=== PATIENT | male | born 1965 | race Hispanic/Latino ===

== ENCOUNTER 2017-11-03 09:51 | Inpatient (IN) | payer SELFPAY ==
[2017-11-03 10:41] LABS: Alanine Aminotransferase 14 units/L (7-56); Albumin 3.8 g/dL (3.9-5); BUN/Creatinine Ratio 22; Blood Urea Nitrogen 11 mg/dL (9-20); Hemolysis Index 63
[2017-11-03 10:42] LABS: Basophils # (Auto) 0.1 K/mm3 (0.0-0.1); Basophils % (Auto) 0.6 % (0.0-1.8); Eosinophils # (Auto) 0.3 K/mm3 (0.0-0.4); Eosinophils % (Auto) 2.5 % (0.0-4.3); Hematocrit 43.2 % (35.5-45.6); Lymphocytes # (Auto) 1.3 K/mm3 (1.2-5.4); Lymphocytes % (Auto) 11.1 % (13.4-35.0); Mean Corpuscular HGB Conc 35 % (32-34); Mean Corpuscular Hemoglobin 34 pg (28-32); Mean Corpuscular Volume 99 fl (84-94); Monocytes # (Auto) 0.8 K/mm3 (0.0-0.8); Platelet Count 215 K/mm3 (140-440); Red Blood Count 4.36 M/mm3 (3.65-5.03); Red Cell Distribution Width 14.7 % (13.2-15.2)
[2017-11-03] MEDS ORDERED: NACL 0.9% 1000 ML 1,000 ML IV ONE ×2 (11:15→12:52)
[2017-11-03] MEDS ORDERED: SUBLIMAZE IV ONE (11:15)
[2017-11-03] MEDS ORDERED: ZOFRAN IV ONE ×2 (11:15→12:52)
--- NOTE | 2017-11-03 11:16 | Emergency Department Report ---
Blank Doc - Documentation Documentation: Patient is 52 years old male history of pancreatitis. Patient presented to the ER complaining of epigastric pain started last night after drinking alcohol. Patient is rating his pain as 10 out of 10 associated with his nausea and vomiting. On a previous exam patient had a epigastric tenderness. IV fluids, fentanyl and Zofran ordered. Patient needed to be seen in the main ED.
[2017-11-03] MEDS ORDERED: SUBLIMAZE IV NR (11:30)
--- NOTE | 2017-11-03 12:47 | Emergency Department Report ---
ED General Adult HPI - General Chief complaint: Abdominal Pain Stated complaint: LOWER ABDOMINAL PAIN Time Seen by Provider: 11/03/17 11:12 Source: patient Mode of arrival: Ambulatory Limitations: No Limitations - History of Present Illness Initial comments: 52-year-old male believes that he has recurrent pancreatitis. He complains of epigastric pain which does not radiate. It started on Thursday and has been intermittent since. It was preceded by alcohol consumption. He denies any back pain. He states he has not had any recent vomiting but states he is nauseated. He denies any known history of cholelithiasis. He has had no fever or chills. No signs of GI bleeding. This had a previous admission here with pancreatitis. It appeared to be uncomplicated. He denies any shortness of breath or chest pain. -: Gradual, days(s) Location: abdomen Radiation: non-radiation Quality: aching Consistency: constant Improves with: none Worsens with: none Associated Symptoms: denies other symptoms, nausea/vomiting - Related Data Home Medications Medication Instructions Recorded Confirmed Last Taken Atenolol [Tenormin] 50 mg PO DAILY 04/22/16 04/22/16 Unknown Previous Rx's Medication Instructions Recorded Last Taken Type Famotidine [Pepcid] 20 mg PO BID #30 tablet 04/25/16 Unknown Rx Folic Acid [Folvite] 1 mg PO QDAY #60 tablet 04/25/16 Unknown Rx LORazepam [Ativan] 2 mg PO Q4-6H PRN #60 tablet 04/25/16 Unknown Rx Nicotine [Habitrol] 21 mg TD QDAY #20 patch 04/25/16 Unknown Rx amLODIPine [Norvasc] 10 mg PO QDAY #60 tablet 04/25/16 Unknown Rx chlordiazePOXIDE [Librium] 25 mg PO Q8H PRN #30 capsule 04/25/16 Unknown Rx Allergies Allergy/AdvReac Type Severity Reaction Status Date / Time No Known Allergies Allergy Verified 11/03/17 09:57 ED Review of Systems ROS: Stated complaint: LOWER ABDOMINAL PAIN Other details as noted in HPI Constitutional: denies: chills, fever Eyes: denies: eye pain, eye discharge, vision change ENT: denies: ear pain, throat pain Respiratory: denies: cough, shortness of breath, wheezing Cardiovascular: denies: chest pain, palpitations Endocrine: no symptoms reported Gastrointestinal: as per HPI, abdominal pain, nausea, vomiting, diarrhea Genitourinary: denies: urgency, dysuria Musculoskeletal: denies: back pain, joint swelling, arthralgia Skin: denies: rash, lesions Neurological: denies: headache, weakness, paresthesias Psychiatric: denies: anxiety, depression Hematological/Lymphatic: denies: easy bleeding, easy bruising ED Past Medical Hx - Past Medical History Hx Hypertension: Yes Hx Congestive Heart Failure: No Hx Diabetes: No Hx Asthma: No Hx COPD: No Additional medical history: Crohn's disease - Surgical History Hx Appendectomy: Yes - Social History Smoking Status: Current Every Day Smoker Substance Use Type: Alcohol - Medications Home Medications: Home Medications Medication Instructions Recorded Confirmed Last Taken Type Atenolol [Tenormin] 50 mg PO DAILY 04/22/16 04/22/16 Unknown History Famotidine [Pepcid] 20 mg PO BID #30 tablet 04/25/16 Unknown Rx Folic Acid [Folvite] 1 mg PO QDAY #60 tablet 04/25/16 Unknown Rx LORazepam [Ativan] 2 mg PO Q4-6H PRN #60 tablet 04/25/16 Unknown Rx Nicotine [Habitrol] 21 mg TD QDAY #20 patch 04/25/16 Unknown Rx amLODIPine [Norvasc] 10 mg PO QDAY #60 tablet 04/25/16 Unknown Rx chlordiazePOXIDE [Librium] 25 mg PO Q8H PRN #30 capsule 04/25/16 Unknown Rx ED Physical Exam - General Limitations: No Limitations ED Course Vital Signs 11/03/17 11/03/17 11/03/17 09:57 12:10 12:30 Temperature 98.4 F Pulse Rate 88 63 Respiratory 20 13 Rate Blood Pressure 178/111 193/103 O2 Sat by Pulse 100 97 97 Oximetry 11/03/17 11/03/17 13:00 13:09 Temperature Pulse Rate 60 Respiratory 11 L 18 Rate Blood Pressure 193/107 O2 Sat by Pulse 98 Oximetry - Reevaluation(s) Reevaluation #1: Discussed with Dr. Schmitz. He states he is coming to see the patient now. 11/03/17 15:32 ED Medical Decision Making - Lab Data Result diagrams: 11/03/17 10:03 11/03/17 10:03 Laboratory Results - last 24 hr 11/03/17 11/03/1711/03/18 10:03 10:03 10:03 WBC 11.8 H RBC 4.36 Hgb 15.0 Hct 43.2 MCV 99 H MCH 34 H MCHC 35 H RDW 14.7 Plt Count 215 Lymph % (Auto) 11.1 L [place] % (Auto) 7.0 Eos % (Auto) 2.5 Baso % (Auto) 0.6 Lymph # 1.3 [place] # 0.8 Eos # 0.3 Baso # 0.1 Seg Neutrophils % 78.8 H Seg Neutrophils # 9.3 H Sodium 137 Potassium 3.6 Chloride 99.9 Carbon Dioxide 25 Anion Gap 16 BUN 11 Creatinine 0.5 L Estimated GFR > 60 BUN/Creatinine Ratio 22 Glucose 115 H Calcium 9.0 Total Bilirubin 1.00 AST 28 ALT 14 Alkaline Phosphatase 128 Total Protein 7.5 Albumin 3.8 L Albumin/Globulin Ratio 1.0 Lipase 246 H - Radiology Data Radiology results: report reviewed interpreted by me: Consistent with pancreatitis, incidental celiac artery stenosis. See report. Critical care attestation.: If time is entered above; I have spent that time in minutes in the direct care of this critically ill patient, excluding procedure time. ED Disposition Clinical Impression: Uncontrolled hypertension, Celiac artery stenosis Acute pancreatitis Qualifiers: Pancreatitis type: unspecified pancreatitis type Acute pancreatitis complication: unspecified Qualified Code(s): K85.90 - Acute pancreatitis without necrosis or infection, unspecified Disposition: -09 OP ADMIT IP TO THIS HOSP Is pt being admited?: Yes Does the pt Need Aspirin: No Condition: Stable Instructions: Hypertension (ED) Referrals: PRIMARY CAREMD [Primary Care Provider] - 3-5 Days Time of Disposition: 15:32
[2017-11-03] MEDS ORDERED: DILAUDID IV ONE (12:52)
[2017-11-03] MEDS ORDERED: BENADRYL IV ONE (12:53)
[2017-11-03 13:03] LABS: Bilirubin,Urine NEG (Negative); Blood,Urine NEG (Negative); Color,Urine Amber (Yellow); Mucus,Urine 3+ /HPF
--- NOTE | 2017-11-03 14:28 | Cat Scan Report ---
FINAL REPORT EXAM: CT ABDOMEN PELVIS W CON HISTORY: abdominal pain TECHNIQUE: CT examination of the ABDOMEN after IV contrast CT examination of the PELVIS after IV contrast PRIORS: 04/22/2016 FINDINGS: Nonspecific diffusely decreased density of liver parenchyma may reflect slight fatty infiltration. No visualized focal liver lesion. Normal-appearing gallbladder, adrenals, and spleen. Intact normal caliber abdominal aorta and IVC. Normal-appearing kidneys and visible ureters. Nonspecific slight prominence of the pancreatic duct diffusely. Nonspecific fat stranding and free fluid is noted adjacent to the pancreatic body and tail. This fluid extends into the left pericolic gutter. There is trace fluid in the right pericolic gutter. These findings are suspicious for acute pancreatitis. Normal-appearing pancreatic parenchyma. Comparison images also showed evidence pancreatitis but previously noted in the pancreatic head region. Intact anterior abdominal wall. No retroperitoneal adenopathy. No mesenteric mass. Normal-appearing stomach and duodenum. Nonspecific slight prominence of proximal small bowel gas and caliber may reflect paralytic ileus. No intestinal obstructive pattern. Normal-appearing small bowel in the pelvis. No pelvic free fluid. Normal-appearing urinary bladder, prostate, seminal vesicles, and rectum. No definite sigmoid colon abnormality. No gross ascites or free air. Normal-appearing cecum and terminal ileum. Appendix not separately identified. No pericecal inflammation. Atherosclerotic change throughout the abdominal aorta and its branches. Noncalcified plaque is noted in the proximal celiac artery with suggestion of 50 to 75 % stenosis at this location on the sagittal images. IMPRESSION: Findings most compatible with acute pancreatitis primarily in the body and tail region with adjacent free fluid in the above described distribution Suggestion of slight hepatic steatosis. Prominent small bowel gas and caliber in proximal aspect may reflect paralytic ileus Suggestion of stenosis in the proximal celiac artery.
[2017-11-03] MEDS ORDERED: NORMODYNE IV ONE ×3 (15:31→15:33)
[2017-11-03] MEDS ORDERED: MORPHINE IV ONE (16:21)
[2017-11-03] MEDS ORDERED: APRESOLINE IV ONE (17:26)
[2017-11-03] MEDS ORDERED: REGLAN IV PRN (19:28)
[2017-11-03] MEDS ORDERED: TYLENOL PO PRN (19:28)
--- NOTE | 2017-11-03 19:28 | History and Physical Report ---
History of Present Illness Date of examination: 11/03/17 Date of admission: 11/03/17 15:42 Chief complaint: Chief complaint: Severe epigastric pain for 4 days History of present illness: History of Present Illness: 52-year-old male comes in for epigastric pain which started on Thursday which is about 4 days ago. Pain is intermittent. Pain was precipitated by alcohol consumption. Patient has recurrent pancreatitis. No back pain. No fever no chills. Patient has a history of alcohol dependence. Pain is 8 on a scale of 1 -10. Sharp in nature. Precipitated by alcohol and spicy food. Relieved by not eating anything. No radiation. Pain pain is localized to the epigastric region. Associated with nausea and vomiting. Vomited couple of times. No diarrhea. Past Medical History Hx Hypertension: Yes Additional medical history: Crohn's disease - Surgical History Hx Appendectomy: Yes - Social History Smoking Status: Current Every Day Smoker Substance Use Type: Alcohol - Medications Home Medications: Home Medications Medication Instructions Recorded Confirmed Last Taken Type Atenolol [Tenormin] 50 mg PO DAILY 04/22/16 04/22/16 Unknown History Famotidine [Pepcid] 20 mg PO BID #30 tablet 04/25/16 Unknown Rx Folic Acid [Folvite] 1 mg PO QDAY #60 tablet 04/25/16 Unknown Rx LORazepam [Ativan] 2 mg PO Q4-6H PRN #60 tablet 04/25/16 Unknown Rx Nicotine [Habitrol] 21 mg TD QDAY #20 patch 04/25/16 Unknown Rx amLODIPine [Norvasc] 10 mg PO QDAY #60 tablet 04/25/16 Unknown Rx chlordiazePOXIDE [Librium] 25 mg PO Q8H PRN #30 capsule 04/25/16 Unknown Rx Review of Systems ROS: Stated complaint: LOWER ABDOMINAL PAIN Other details as noted in HPI Constitutional: denies: chills, fever Eyes: denies: eye pain, eye discharge, vision change ENT: denies: ear pain, throat pain Respiratory: denies: cough, shortness of breath, wheezing Cardiovascular: denies: chest pain, palpitations Endocrine: no symptoms reported Gastrointestinal: as per HPI, abdominal pain, nausea, vomiting, diarrhea Genitourinary: denies: urgency, dysuria Musculoskeletal: denies: back pain, joint swelling, arthralgia Skin: denies: rash, lesions Neurological: denies: headache, weakness, paresthesias Psychiatric: denies: anxiety, depression Hematological/Lymphatic: denies: easy bleeding, easy bruising 14 point review of systems done essentially negative Medications and Allergies Allergies Allergy/AdvReac Type Severity Reaction Status Date / Time No Known Allergies Allergy Verified 11/03/17 09:57 Home Medications Medication Instructions Recorded Confirmed Last Taken Type Lisinopril 20 mg PO DAILY 11/04/17 11/04/17 Unknown History Exam - Physical Exam Narrative exam: Lying in bed uncomfortable - Constitutional Vitals: Temp Pulse Resp BP Pulse Ox 98.4 F 82 20 172/108 99 11/03/17 09:57 11/03/17 18:21 11/03/17 18:21 11/03/17 18:21 11/03/17 18:21 General appearance: Present: mild distress, well-nourished - EENT Eyes: Present: PERRL ENT: hearing intact, clear oral mucosa - Neck Neck: Present: supple, normal ROM - Respiratory Respiratory effort: normal Respiratory: bilateral: CTA - Cardiovascular Heart rate: 76 Rhythm: regular Heart Sounds: Present: S1 & S2. Absent: rub, click - Extremities Extremities: no ischemia, pulses intact, pulses symmetrical, No edema Peripheral Pulses: within normal limits - Abdominal General gastrointestinal: Present: tender, non-distended, normal bowel sounds, other (some guarding present no rigidity.) Male genitourinary: Present: normal - Rectal Rectal Exam: stool brown - Integumentary Integumentary: Present: clear, warm, dry - Musculoskeletal Musculoskeletal: gait normal, strength equal bilaterally - Psychiatric Psychiatric: appropriate mood/affect, intact judgment & insight - Neurologic Neurologic: CNII-XII intact, moves all extremities - Allied Health Allied health notes reviewed: nursing, case management Results - Labs CBC & Chem 7: 11/04/17 05:13 11/04/17 05:13 Labs: Laboratory Last Values WBC 11.8 K/mm3 (4.5-11.0) H 11/03/17 10:03 RBC 4.36 M/mm3 (3.65-5.03) 11/03/17 10:03 Hgb 15.0 gm/dl (11.8-15.2) 11/03/17 10:03 Hct 43.2 % (35.5-45.6) 11/03/17 10:03 MCV 99 fl (84-94) H 11/03/17 10:03 MCH 34 pg (28-32) H 11/03/17 10:03 MCHC 35 % (32-34) H 11/03/17 10:03 RDW 14.7 % (13.2-15.2) 11/03/17 10:03 Plt Count 215 K/mm3 (140-440) 11/03/17 10:03 Lymph % (Auto) 11.1 % (13.4-35.0) L 11/03/17 10:03 [place] % (Auto) 7.0 % (0.0-7.3) 11/03/17 10:03 Eos % (Auto) 2.5 % (0.0-4.3) 11/03/17 10:03 Baso % (Auto) 0.6 % (0.0-1.8) 11/03/17 10:03 Lymph # 1.3 K/mm3 (1.2-5.4) 11/03/17 10:03 [place] # 0.8 K/mm3 (0.0-0.8) 11/03/17 10:03 Eos # 0.3 K/mm3 (0.0-0.4) 11/03/17 10:03 Baso # 0.1 K/mm3 (0.0-0.1) 11/03/17 10:03 Seg Neutrophils % 78.8 % (40.0-70.0) H 11/03/17 10:03 Seg Neutrophils # 9.3 K/mm3 (1.8-7.7) H 11/03/17 10:03 Sodium 137 mmol/L (137-145) 11/03/17 10:03 Potassium 3.6 mmol/L (3.6-5.0) 11/03/17 10:03 Chloride 99.9 mmol/L (98-107) 11/03/17 10:03 Carbon Dioxide 25 mmol/L (22-30) 11/03/17 10:03 Anion Gap 16 mmol/L 11/03/17 10:03 BUN 11 mg/dL (9-20) 11/03/17 10:03 Creatinine 0.5 mg/dL (0.8-1.5) L 11/03/17 10:03 Estimated GFR > 60 ml/min 11/03/17 10:03 BUN/Creatinine Ratio 22 % 11/03/17 10:03 Glucose 115 mg/dL (75-100) H 11/03/17 10:03 Calcium 9.0 mg/dL (8.4-10.2) 11/03/17 10:03 Total Bilirubin 1.00 mg/dL (0.1-1.2) 11/03/17 10:03 AST 28 units/L (5-40) 11/03/17 10:03 ALT 14 units/L (7-56) 11/03/17 10:03 Alkaline Phosphatase 128 units/L (35-129) 11/03/17 10:03 Total Protein 7.5 g/dL (6.3-8.2) 11/03/17 10:03 Albumin 3.8 g/dL (3.9-5) L 11/03/17 10:03 Albumin/Globulin Ratio 1.0 % 11/03/17 10:03 Lipase 246 units/L (13-60) H 11/03/17 10:03 Urine Color [place] (Yellow) 11/03/17 12:29 Urine Turbidity Clear (Clear) 11/03/17 12:29 Urine pH 7.0 (5.0-7.0) 11/03/17 12:29 Ur Specific [place] 1.025 (1.003-1.030) 11/03/17 12:29 Urine Protein 100 mg/dl mg/dL (Negative) 11/03/17 12:29 Urine Glucose (UA) Neg mg/dL (Negative) 11/03/17 12:29 Urine Ketones 20 mg/dL (Negative) 11/03/17 12:29 Urine Blood Neg (Negative) 11/03/17 12:29 Urine Nitrite Neg (Negative) 11/03/17 12:29 Urine Bilirubin Neg (Negative) 11/03/17 12:29 Urine Urobilinogen 4.0 mg/dL (<2.0) 11/03/17 12:29 Ur Leukocyte Esterase Tr (Negative) 11/03/17 12:29 Urine WBC (Auto) 6.0 /HPF (0.0-6.0) 11/03/17 12:29 Urine RBC (Auto) 3.0 /HPF (0.0-6.0) 11/03/17 12:29 Urine Mucus 3+ /HPF 11/03/17 12:29 Short CBC 11/03/17 11/04/17 Range/Units 10:03 05:13 WBC 11.8 H 9.7 (4.5-11.0) K/mm3 Hgb 15.0 13.4 (11.8-15.2) gm/dl Hct 43.2 37.7 (35.5-45.6) % Plt Count 215 179 (140-440) K/mm3 BMP 11/03/17 11/03/17 11/04/17 10:03 20:35 05:13 Sodium 137 137 Potassium 3.6 3.0 L [place] 99.9 101.2 Carbon Dioxide 25 24 BUN 11 7 L Creatinine 0.5 L 0.4 L Glucose 115 H 120 H Calcium 9.0 7.9 L 7.8 L Liver Function 11/03/17 11/04/17 Range/Units 10:03 05:13 Total Bilirubin 1.00 0.90 (0.1-1.2) mg/dL AST 28 16 (5-40) units/L ALT 14 9 (7-56) units/L Alkaline Phosphatase 128 106 (35-129) units/L Albumin 3.8 L 3.5 L (3.9-5) g/dL Urine 11/03/17 Range/Units 12:29 Urine Color [place] (Yellow) Urine pH 7.0 (5.0-7.0) Ur Specific [place] 1.025 (1.003-1.030) Urine Protein 100 mg/dl (Negative) mg/dL Urine Glucose (UA) Neg (Negative) mg/dL - Imaging and Cardiology CT scan - abdomen: report reviewed Imaging and Cardiology: CT abdomen and pelvis Findings most compatible with acute pancreatitis primarily in the body and tail region with adjacent free fluid in the above-described distribution Suggestion of slight hepatic steatosis Prominent small bowel gas in caliber and proximal aspect may reflect paralytic ileus Suggestion of stenosis in the proximal celiac artery Assessment and Plan Advance Directives: Yes (full code) VTE prophylaxis?: Chemical Plan of care discussed with patient/family: Yes - Patient Problems (1) Acute pancreatitis Current Visit: Yes Status: Acute Qualifiers: Pancreatitis type: unspecified pancreatitis type Acute pancreatitis complication: unspecified Qualified Code(s): K85.90 - Acute pancreatitis without necrosis or infection, unspecified Plan to address problem: We will keep the patient nothing by mouth Surgical consult requested Pain management for time being IV fluids IV Zofran for nausea and vomiting (2) Celiac artery stenosis Current Visit: Yes Status: Chronic Plan to address problem: Chronic We'll get vascular surgery consult (3) Hypertension Current Visit: Yes Status: Chronic Qualifiers: Hypertension type: essential hypertension Qualified Code(s): I10 - Essential (primary) hypertension Plan to address problem: Catapres patch initiated No oral antihypertensives (4) EtOH dependence Current Visit: Yes Status: Chronic Qualifiers: Substance use status: uncomplicated Qualified Code(s): F10.20 - Alcohol dependence, uncomplicated Plan to address problem: CIWA protocol initiated (5) Hypokalemia Current Visit: Yes Status: Acute Plan to address problem: Supplemented (6) Hypomagnesemia Current Visit: Yes Status: Acute Plan to address problem: Supplemented Recheck magnesium level (7) Hypophosphatemia Current Visit: Yes Status: Acute Plan to address problem: Supplemented Recheck phosphorus level (8) DVT prophylaxis Current Visit: Yes Status: Acute Plan to address problem: Heparin 5000 units subcutaneous every 12
[2017-11-03] MEDS ORDERED: HALDOL IV PRN (19:30)
[2017-11-03] MEDS ORDERED: ATIVAN IV PRN (19:30)
[2017-11-03] MEDS: D5NS 1,000 ML IV SCH (19:54)
[2017-11-03] MEDS: MORPHINE IV PRN (19:55)
[2017-11-03] MEDS: SODIUM CHLORIDE FLUSH SYRINGE 10 ML IV PRN (19:56)
[2017-11-03 21:13] LABS: Calcium 7.9 mg/dL (8.4-10.2)
[2017-11-03 21:30] LABS: Lipase 418 units/L (13-60)
[2017-11-03] MEDS: PERCOCET 5/325 PO PRN (22:12)
[2017-11-03] MEDS: PEPCID IV SCH (22:12)
[2017-11-03] MEDS: SODIUM CHLORIDE FLUSH SYRINGE 10 ML IV SCH (22:13)
[2017-11-04] MEDS: SODIUM CHLORIDE FLUSH SYRINGE 10 ML IV PRN ×2 (00:43→01:50)
[2017-11-04] MEDS: APRESOLINE IV PRN ×3 (00:43→17:35)
[2017-11-04] MEDS: MORPHINE IV PRN ×2 (01:49→08:25)
[2017-11-04] MEDS: PERCOCET 5/325 PO PRN ×2 (04:38→10:55)
[2017-11-04 05:29] LABS: Basophils # (Auto) 0.1 K/mm3 (0.0-0.1); Basophils % (Auto) 0.6 % (0.0-1.8); Eosinophils # (Auto) 0.4 K/mm3 (0.0-0.4); Eosinophils % (Auto) 3.8 % (0.0-4.3); Hematocrit 37.7 % (35.5-45.6); Hemoglobin 13.4 gm/dl (11.8-15.2); Lymphocytes # (Auto) 1.2 K/mm3 (1.2-5.4); Lymphocytes % (Auto) 12.5 % (13.4-35.0); Mean Corpuscular HGB Conc 36 % (32-34); Mean Corpuscular Hemoglobin 35 pg (28-32); Mean Corpuscular Volume 98 fl (84-94); Monocytes # (Auto) 0.6 K/mm3 (0.0-0.8); Monocytes % (Auto) 6.7 % (0.0-7.3); Platelet Count 179 K/mm3 (140-440); Red Blood Count 3.83 M/mm3 (3.65-5.03); Red Cell Distribution Width 15.1 % (13.2-15.2)
[2017-11-04 05:46] LABS: Alanine Aminotransferase 9 units/L (7-56); Albumin 3.5 g/dL (3.9-5); BUN/Creatinine Ratio 18; Blood Urea Nitrogen 7 mg/dL (9-20); Calcium 7.8 mg/dL (8.4-10.2); Hemolysis Index 1
[2017-11-04] MEDS: D5NS 1,000 ML IV SCH ×2 (05:58→21:37)
[2017-11-04] MEDS ORDERED: MAGNESIUM SULFATE 2GM/50ML 2 GM/50 ML BAG IV ONE ×2 (07:37→10:00)
[2017-11-04] MEDS: ZESTRIL PO SCH (09:47)
[2017-11-04] MEDS: HEPARIN SUB-Q SCH ×2 (09:47→22:53)
[2017-11-04] MEDS: K-PHOS NEUTRAL PO SCH (09:47)
[2017-11-04] MEDS: PEPCID IV SCH ×2 (09:51→22:53)
[2017-11-04] MEDS: SODIUM CHLORIDE FLUSH SYRINGE 10 ML IV SCH ×2 (09:52→23:26)
[2017-11-04] MEDS ORDERED: WATER FOR INJ IV ONE (10:00)
[2017-11-04] MEDS ORDERED: MAGNESIUM SULFATE IV ONE (10:00)
[2017-11-04] MEDS: KCL 10MEQ/100ML 10 MEQ/100 ML BAG IV SCH ×5 (10:47→23:23)
[2017-11-04] MEDS ORDERED: DILAUDID IV PRN (11:37)
[2017-11-04] MEDS: DILAUDID IV PRN ×4 (12:58→23:38)
--- NOTE | 2017-11-04 18:49 | Progress Note ---
Assessment and Plan - Patient Problems (1) Acute pancreatitis Current Visit: Yes Status: Acute Qualifiers: Pancreatitis type: unspecified pancreatitis type Acute pancreatitis complication: unspecified Qualified Code(s): K85.90 - Acute pancreatitis without necrosis or infection, unspecified Plan to address problem: We will keep the patient nothing by mouth Surgical consult appreciated Pain management for time being IV fluids IV Zofran for nausea and vomiting (2) Celiac artery stenosis Current Visit: Yes Status: Chronic Plan to address problem: Chronic We'll get vascular surgery consult (3) Hypertension Current Visit: Yes Status: Chronic Qualifiers: Hypertension type: essential hypertension Qualified Code(s): I10 - Essential (primary) hypertension Plan to address problem: Catapres patch initiated No oral antihypertensives (4) EtOH dependence Current Visit: Yes Status: Chronic Qualifiers: Substance use status: uncomplicated Qualified Code(s): F10.20 - Alcohol dependence, uncomplicated Plan to address problem: CIWA protocol initiated (5) Hypokalemia Current Visit: Yes Status: Acute Plan to address problem: Supplemented (6) Hypomagnesemia Current Visit: Yes Status: Acute Plan to address problem: Supplemented Recheck magnesium level (7) Hypophosphatemia Current Visit: Yes Status: Acute Plan to address problem: Supplemented Recheck phosphorus level (8) DVT prophylaxis Current Visit: Yes Status: Acute Plan to address problem: Heparin 5000 units subcutaneous every 12 Subjective Date of service: 11/04/17 Principal diagnosis: acute pancreatitis, EtOH dependence Interval history: Patient symptomatically better Objective - Exam Narrative Exam: Lying in bed uncomfortable - Constitutional Vitals: Vital Signs - 12hr 11/04/17 11/04/17 11/04/17 08:11 09:47 12:00 Temperature 97.9 F 97.6 F Pulse Rate 87 87 79 Respiratory 19 19 Rate Blood Pressure 145/103 145/103 Blood Pressure 169/94 [Right] O2 Sat by Pulse 98 98 Oximetry 11/04/17 11/04/17 11/04/17 12:43 17:22 17:35 Temperature 97.8 F Pulse Rate 79 103 H 97 H Respiratory 19 Rate Blood Pressure 169/94 174/103 174/103 Blood Pressure [Right] O2 Sat by Pulse 98 Oximetry General appearance: Present: no acute distress, well-nourished - EENT Eyes: PERRL, EOM intact ENT: hearing intact, clear oral mucosa Ears: bilateral: normal - Neck Neck: supple, normal ROM - Respiratory Respiratory effort: normal Respiratory: bilateral: CTA - Breasts Breasts: normal - Cardiovascular Heart rate: 70 Rhythm: regular Heart Sounds: Present: S1 & S2. Absent: gallop, rub Extremities: pulses intact, No edema, normal color, Full ROM - Gastrointestinal General gastrointestinal: Present: soft, non-tender, non-distended, normal bowel sounds Rectal Exam: deferred - Genitourinary Male genitourinary: deferred, normal - Integumentary Integumentary: clear, warm, dry - Musculoskeletal Musculoskeletal: 1, strength equal bilaterally - Neurologic Neurologic: moves all extremities - Psychiatric Psychiatric: memory intact, appropriate mood/affect, intact judgment & insight - Allied health notes Allied health notes reviewed: nursing, case management - Labs CBC & Chem 7: 11/04/17 05:13 11/04/17 05:13 Labs: Abnormal lab results 11/03/17 11/03/17 11/04/17 Range/Units 20:35 20:35 05:13 MCV 98 H (84-94) fl MCH 35 H (28-32) pg MCHC 36 H (32-34) % Lymph % (Auto) 12.5 L (13.4-35.0) % Seg Neutrophils % 76.4 H (40.0-70.0) % Potassium (3.6-5.0) mmol/L BUN (9-20) mg/dL Creatinine (0.8-1.5) mg/dL Glucose (75-100) mg/dL Calcium 7.9 L (8.4-10.2) mg/dL Phosphorus 1.80 L (2.5-4.5) mg/dL Magnesium 1.00 L (1.7-2.3) mg/dL Albumin (3.9-5) g/dL Amylase 402 H (27-131) units/L Lipase 418 H (13-60) units/L 11/04/17 Range/Units 05:13 MCV (84-94) fl MCH (28-32) pg MCHC (32-34) % Lymph % (Auto) (13.4-35.0) % Seg Neutrophils % (40.0-70.0) % Potassium 3.0 L (3.6-5.0) mmol/L BUN 7 L (9-20) mg/dL Creatinine 0.4 L (0.8-1.5) mg/dL Glucose 120 H (75-100) mg/dL Calcium 7.8 L (8.4-10.2) mg/dL Phosphorus (2.5-4.5) mg/dL Magnesium (1.7-2.3) mg/dL Albumin 3.5 L (3.9-5) g/dL Amylase (27-131) units/L Lipase (13-60) units/L
[2017-11-04] MEDS ORDERED: KCL 10MEQ/100ML 10 MEQ/100 ML BAG IV SCH (19:00)
[2017-11-04 22:31] LABS: Alanine Aminotransferase 9 units/L (7-56); Albumin 3.7 g/dL (3.9-5); BUN/Creatinine Ratio 12; Blood Urea Nitrogen 6 mg/dL (9-20); Calcium 8.5 mg/dL (8.4-10.2); Hemolysis Index 2
[2017-11-05] MEDS: DILAUDID IV PRN ×7 (02:41→22:35)
[2017-11-05 06:45] LABS: Basophils % (Auto) 0.5 % (0.0-1.8); Eosinophils # (Auto) 0.3 K/mm3 (0.0-0.4); Hematocrit 36.4 % (35.5-45.6); Hemoglobin 12.1 gm/dl (11.8-15.2); Lymphocytes # (Auto) 1.3 K/mm3 (1.2-5.4); Mean Corpuscular HGB Conc 33 % (32-34); Mean Corpuscular Hemoglobin 33 pg (28-32); Mean Corpuscular Volume 100 fl (84-94); Monocytes # (Auto) 0.8 K/mm3 (0.0-0.8); Monocytes % (Auto) 8.6 % (0.0-7.3); Platelet Count 189 K/mm3 (140-440); Red Blood Count 3.65 M/mm3 (3.65-5.03); Red Cell Distribution Width 14.9 % (13.2-15.2)
[2017-11-05 07:00] LABS: Lipase 181 units/L (13-60)
[2017-11-05] MEDS: D5NS 1,000 ML IV SCH ×3 (07:22→23:59)
[2017-11-05] MEDS: ZESTRIL PO SCH ×2 (10:50→11:10)
[2017-11-05] MEDS: K-PHOS NEUTRAL PO SCH ×2 (10:51→11:09)
[2017-11-05] MEDS: HEPARIN SUB-Q SCH ×2 (10:51→22:34)
[2017-11-05] MEDS: APRESOLINE IV PRN ×2 (10:51→17:34)
[2017-11-05] MEDS: PEPCID IV SCH ×2 (10:51→22:34)
[2017-11-05] MEDS: SODIUM CHLORIDE FLUSH SYRINGE 10 ML IV SCH ×2 (11:09→22:35)
--- NOTE | 2017-11-05 15:09 | Progress Note ---
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 Plan to address problem: Chronic (3) Hypertension Current Visit: Yes Status: Chronic Qualifiers: Hypertension type: essential hypertension Qualified Code(s): I10 - Essential (primary) hypertension Plan to address problem: Catapres patch initiated No oral antihypertensives (4) EtOH dependence Current Visit: Yes Status: Chronic Qualifiers: Substance use status: uncomplicated Qualified Code(s): F10.20 - Alcohol dependence, uncomplicated Plan to address problem: CIWA protocol initiated (5) Hypokalemia Current Visit: Yes Status: Acute Plan to address problem: Supplemented (6) Hypomagnesemia Current Visit: Yes Status: Acute Plan to address problem: Supplemented Recheck magnesium level (7) Hypophosphatemia Current Visit: Yes Status: Acute Plan to address problem: Supplemented Recheck phosphorus level (8) DVT prophylaxis Current Visit: Yes Status: Acute Plan to address problem: Heparin 5000 units subcutaneous every 12 Subjective Date of service: 11/05/17 Principal diagnosis: acute pancreatitis, EtOH dependence Interval history: Patient symptomatically better Objective - Exam Narrative Exam: Lying in bed uncomfortable - Constitutional Vitals: Vital Signs - 12hr 11/05/17 11/05/17 11/05/17 07:56 09:01 12:36 Temperature 97.8 F Pulse Rate 89 Respiratory 19 20 20 Rate Blood Pressure 173/115 O2 Sat by Pulse 99 Oximetry General appearance: Present: no acute distress, well-nourished - EENT Eyes: PERRL, EOM intact ENT: hearing intact, clear oral mucosa Ears: bilateral: normal - Neck Neck: supple, normal ROM - Respiratory Respiratory effort: normal Respiratory: bilateral: CTA - Breasts Breasts: normal - Cardiovascular Heart rate: 80 Rhythm: regular Heart Sounds: Present: S1 & S2. Absent: gallop, rub Extremities: pulses intact, No edema, normal color, Full ROM - Gastrointestinal General gastrointestinal: Present: soft, tender, non-distended, normal bowel sounds - Genitourinary Male genitourinary: normal - Integumentary Integumentary: clear, warm, dry - Musculoskeletal Musculoskeletal: 1, strength equal bilaterally - Neurologic Neurologic: moves all extremities - Psychiatric Psychiatric: memory intact, appropriate mood/affect, intact judgment & insight - Labs CBC & Chem 7: 11/05/17 06:16 11/04/17 20:19 Labs: Abnormal lab results 11/04/17 11/04/17 11/05/17 Range/Units 20:19 20:30 06:16 MCV 100 H (84-94) fl MCH 33 H (28-32) pg [place] % (Auto) 8.6 H (0.0-7.3) % Seg Neutrophils % 73.9 H (40.0-70.0) % Sodium 136 L (137-145) mmol/L BUN 6 L (9-20) mg/dL Creatinine 0.5 L (0.8-1.5) mg/dL Glucose 102 H (75-100) mg/dL Albumin 3.7 L (3.9-5) g/dL Amylase (27-131) units/L Lipase 224 H (13-60) units/L 11/05/17 Range/Units 06:16 MCV (84-94) fl MCH (28-32) pg [place] % (Auto) (0.0-7.3) % Seg Neutrophils % (40.0-70.0) % Sodium (137-145) mmol/L BUN (9-20) mg/dL Creatinine (0.8-1.5) mg/dL Glucose (75-100) mg/dL Albumin (3.9-5) g/dL Amylase 178 H (27-131) units/L Lipase 181 H (13-60) units/L
--- NOTE | 2017-11-05 15:34 | Consultation ---
History of Present Illness Consult date: 11/05/17 Reason for consult: other (pancreatitis) Requesting physician: BRYNN HA Chief complaint: abd pain - History of present illness History of present illness: 52-year-old male with a history of alcohol abuse presented to the emergency room with three-day complaint of severe epigastric abdominal pain. He states that the pain started gradually, feels like a burning, and slowly became worse over the next 48 hours. Once the pain was too unbearable he came to the emergency room. He states that he noticed the pain was caused by alcohol intake. He states he drinks a fifth of liquor. The pain at its worst is a 10 out of 10 in severity, localized to the epigastrium, and does not radiate. It is alleviated with pain medications given here in the hospital. He states it was associated with nausea and a small amount of nonbilious, nonbloody emesis. He denies fevers, chills, chest pain, shortness of breath, constipation, diarrhea. She was hospitalized back in 2015 at [facility] for pancreatitis. At that time, the notes mention that the patient needed rehabilitation for alcohol abuse. The patient did not stop drinking alcohol after that Past History Past Medical History: hypertension Past Surgical History: appendectomy Social history: smoking, alcohol abuse (a fifth of liquor a day) Family history: no significant family history Medications and Allergies Allergies Allergy/AdvReac Type Severity Reaction Status Date / Time No Known Allergies Allergy Verified 11/03/17 09:57 Home Medications Medication Instructions Recorded Confirmed Last Taken Type Lisinopril 20 mg PO DAILY 11/04/17 11/04/17 Unknown History Active Meds: Active Medications Acetaminophen (Tylenol) 650 mg PO Q4H PRN PRN Reason: Pain MILD(1-3)/Fever >100.5/WOOD Clonidine HCl (Catapres-Tts Patch) 0.2 mg TD QWEEK [facility] Famotidine (Pepcid) 20 mg IV BID [facility] Last Admin: 11/05/17 10:51 Dose: 20 mg Haloperidol Lactate (Haldol) 5 mg IV Q1H PRN PRN Reason: Unrespon. to mult. doses BZD's Heparin Sodium (Porcine) (Heparin) 5,000 unit SUB-Q Q12HR [facility] Last Admin: 11/05/17 10:51 Dose: 5,000 unit Hydralazine HCl (Apresoline) 10 mg IV Q4HR PRN PRN Reason: Hypertension Last Admin: 11/05/17 10:51 Dose: 10 mg Hydralazine HCl (Apresoline) 10 mg IV Q3H PRN PRN Reason: Hypertension Hydromorphone HCl (Dilaudid) 2 mg IV Q3H PRN PRN Reason: Pain , Severe (7-10) Last Admin: 11/05/17 12:36 Dose: 2 mg Dextrose/Sodium Chloride (D5ns) 1,000 mls @ 150 mls/hr IV DIRECT [facility] Last Admin: 11/05/17 07:22 Dose: 100 mls/hr Lisinopril (Zestril) 20 mg PO QDAY [facility] Last Admin: 11/05/17 11:10 Dose: Not Given Lorazepam (Ativan) 2 mg IV Q1H PRN PRN Reason: CIWA-Ar 8-15 Lorazepam (Ativan) 4 mg IV Q1H PRN PRN Reason: CIWA-Ar 16-25 Last Admin: 11/04/17 21:43 Dose: 4 mg Metoclopramide HCl (Reglan) 10 mg IV Q6H PRN PRN Reason: Nausea And Vomiting Ondansetron HCl (Zofran) 4 mg IV Q4H PRN PRN Reason: Nausea And Vomiting Oxycodone/Acetaminophen (Percocet 5/325) 1 tab PO Q6H PRN PRN Reason: Pain, Moderate (4-6) Last Admin: 11/04/17 10:55 Dose: 1 tab Sodium Chloride (Sodium Chloride Flush Syringe 10 Ml) 10 ml IV BID [facility] Last Admin: 11/05/17 11:09 Dose: Not Given Sodium Chloride (Sodium Chloride Flush Syringe 10 Ml) 10 ml IV PRN PRN PRN Reason: LINE FLUSH Last Admin: 11/04/17 01:50 Dose: 10 ml Sodium Phosphate (K-Phos Neutral) 250 mg PO QDAY [facility] Last Admin: 11/05/17 11:09 Dose: Not Given Review of Systems All systems: negative (10 point review of systems was performed and negative except for that listed in HPI) Exam Vital Signs Temp Pulse Resp BP Pulse Ox 98.4 F 88 20 178/111 100 11/03/17 09:57 11/03/17 09:57 11/03/17 09:57 11/03/17 09:57 11/03/17 09:57 Narrative exam: Gen.: Awake, alert, oriented 3. Appears to be uncomfortable CV: S1, S2 present Respiratory: No audible wheezes Abdomen: Soft, nondistended, positive tenderness to palpation in the epigastrium. No rebound, rigidity, guarding Extremities: No clubbing, cyanosis, edema Results - Labs 11/05/17 06:16 11/04/17 20:19 Abnormal lab results 11/04/17 11/04/17 11/05/17 Range/Units 20:19 20:30 06:16 MCV 100 H (84-94) fl MCH 33 H (28-32) pg [place] % (Auto) 8.6 H (0.0-7.3) % Seg Neutrophils % 73.9 H (40.0-70.0) % Sodium 136 L (137-145) mmol/L BUN 6 L (9-20) mg/dL Creatinine 0.5 L (0.8-1.5) mg/dL Glucose 102 H (75-100) mg/dL Albumin 3.7 L (3.9-5) g/dL Amylase (27-131) units/L Lipase 224 H (13-60) units/L 11/05/17 Range/Units 06:16 MCV (84-94) fl MCH (28-32) pg [place] % (Auto) (0.0-7.3) % Seg Neutrophils % (40.0-70.0) % Sodium (137-145) mmol/L BUN (9-20) mg/dL Creatinine (0.8-1.5) mg/dL Glucose (75-100) mg/dL Albumin (3.9-5) g/dL Amylase 178 H (27-131) units/L Lipase 181 H (13-60) units/L Diabetes panel 11/04/17 Range/Units 20:19 Sodium 136 L (137-145) mmol/L Potassium 3.9 D (3.6-5.0) mmol/L Chloride 99.0 (98-107) mmol/L Carbon Dioxide 22 (22-30) mmol/L BUN 6 L (9-20) mg/dL Creatinine 0.5 L (0.8-1.5) mg/dL Glucose 102 H (75-100) mg/dL Calcium 8.5 (8.4-10.2) mg/dL AST 15 (5-40) units/L ALT 9 (7-56) units/L Alkaline Phosphatase 103 (35-129) units/L Total Protein 6.9 (6.3-8.2) g/dL Albumin 3.7 L (3.9-5) g/dL Calcium panel 11/04/17 Range/Units 20:19 Calcium 8.5 (8.4-10.2) mg/dL Albumin 3.7 L (3.9-5) g/dL Pituitary panel 11/04/17 Range/Units 20:19 Sodium 136 L (137-145) mmol/L Potassium 3.9 D (3.6-5.0) mmol/L Chloride 99.0 (98-107) mmol/L Carbon Dioxide 22 (22-30) mmol/L BUN 6 L (9-20) mg/dL Creatinine 0.5 L (0.8-1.5) mg/dL Glucose 102 H (75-100) mg/dL Calcium 8.5 (8.4-10.2) mg/dL Adrenal panel 11/04/17 Range/Units 20:19 Sodium 136 L (137-145) mmol/L Potassium 3.9 D (3.6-5.0) mmol/L Chloride 99.0 (98-107) mmol/L Carbon Dioxide 22 (22-30) mmol/L BUN 6 L (9-20) mg/dL Creatinine 0.5 L (0.8-1.5) mg/dL Glucose 102 H (75-100) mg/dL Calcium 8.5 (8.4-10.2) mg/dL Total Bilirubin 0.80 (0.1-1.2) mg/dL AST 15 (5-40) units/L ALT 9 (7-56) units/L Alkaline Phosphatase 103 (35-129) units/L Total Protein 6.9 (6.3-8.2) g/dL Albumin 3.7 L (3.9-5) g/dL - Imaging CT scan - abdomen: report reviewed, image reviewed CT scan - pelvis: report reviewed, image reviewed Assessment and Plan 52 yo M with 1. pancreatitis secondary to etoh abuse Plan: 1. NPO until pain improves 2. trend lipase, currently improving 3. prn pain control 4. IVF - increased to 150cc/hr 5. DVT ppx 6. discussed with patient about the importance of stopping etoh intake. I made him aware that he will continue to have episodes like this that can lead to serious life threatening infections and even . He is willing to quit etoh and is open to rehab programs. 7. d/w case management who will give the patient some options for etoh rehab and AA meetings. No acute surgical intervention at this time. Thank you for this consultation, please call with questions or concerns
[2017-11-05] MEDS: ATIVAN IV PRN (20:12)
[2017-11-05] MEDS: ZOFRAN IV PRN (22:34)
[2017-11-06] MEDS: DILAUDID IV PRN ×7 (02:05→22:10)
[2017-11-06] MEDS: ZOFRAN IV PRN (02:06)
[2017-11-06] MEDS: APRESOLINE IV PRN ×4 (04:52→23:47)
[2017-11-06 05:53] LABS: Basophils # (Auto) 0.1 K/mm3 (0.0-0.1); Basophils % (Auto) 0.7 % (0.0-1.8); Eosinophils # (Auto) 0.3 K/mm3 (0.0-0.4); Eosinophils % (Auto) 3.6 % (0.0-4.3); Hematocrit 37.2 % (35.5-45.6); Hemoglobin 12.8 gm/dl (11.8-15.2); Lymphocytes # (Auto) 1.6 K/mm3 (1.2-5.4); Lymphocytes % (Auto) 17.6 % (13.4-35.0); Mean Corpuscular HGB Conc 34 % (32-34); Mean Corpuscular Hemoglobin 34 pg (28-32); Mean Corpuscular Volume 100 fl (84-94); Monocytes # (Auto) 0.9 K/mm3 (0.0-0.8); Monocytes % (Auto) 9.2 % (0.0-7.3); Platelet Count 210 K/mm3 (140-440); Red Blood Count 3.73 M/mm3 (3.65-5.03); Red Cell Distribution Width 15.2 % (13.2-15.2)
[2017-11-06 06:05] LABS: Alanine Aminotransferase 9 units/L (7-56); Albumin 3.6 g/dL (3.9-5); BUN/Creatinine Ratio 8; Blood Urea Nitrogen 3 mg/dL (9-20); Calcium 8.2 mg/dL (8.4-10.2); Hemolysis Index 0
[2017-11-06] MEDS: D5NS 1,000 ML IV SCH ×3 (06:31→22:10)
[2017-11-06] MEDS: K-PHOS NEUTRAL PO SCH (09:55)
[2017-11-06] MEDS: HEPARIN SUB-Q SCH ×2 (09:56→22:11)
[2017-11-06] MEDS: ZESTRIL PO SCH (09:56)
[2017-11-06] MEDS: SODIUM CHLORIDE FLUSH SYRINGE 10 ML IV SCH ×2 (09:57→22:11)
[2017-11-06] MEDS: PEPCID IV SCH ×2 (09:57→22:11)
[2017-11-06] MEDS: ATIVAN IV PRN ×2 (11:55→23:44)
--- NOTE | 2017-11-06 16:47 | Progress Note ---
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 Plan to address problem: Chronic (3) Hypertension Current Visit: Yes Status: Chronic Qualifiers: Hypertension type: essential hypertension Qualified Code(s): I10 - Essential (primary) hypertension Plan to address problem: Catapres patch initiated No oral antihypertensives (4) EtOH dependence Current Visit: Yes Status: Chronic Qualifiers: Substance use status: uncomplicated Qualified Code(s): F10.20 - Alcohol dependence, uncomplicated Plan to address problem: CIWA protocol initiated (5) Hypokalemia Current Visit: Yes Status: Acute Plan to address problem: Supplemented (6) Hypomagnesemia Current Visit: Yes Status: Acute Plan to address problem: Supplemented Recheck magnesium level (7) Hypophosphatemia Current Visit: Yes Status: Acute Plan to address problem: Supplemented Recheck phosphorus level (8) DVT prophylaxis Current Visit: Yes Status: Acute Plan to address problem: Heparin 5000 units subcutaneous every 12 Subjective Date of service: 11/06/17 Principal diagnosis: acute pancreatitis, EtOH dependence Interval history: Patient symptomatically better Objective - Exam Narrative Exam: Lying in bed uncomfortable - Constitutional Vitals: Vital Signs - 12hr 11/06/17 11/06/17 11/06/17 04:52 06:37 07:41 Temperature 98.3 F Pulse Rate 89 91 H 106 H Respiratory 18 Rate Blood Pressure 173/99 172/112 Blood Pressure 168/101 [Right] O2 Sat by Pulse 98 Oximetry 11/06/17 11/06/17 11/06/17 08:23 09:56 10:00 Temperature Pulse Rate 104 H 104 H Respiratory Rate Blood Pressure 172/112 172/112 Blood Pressure [Right] O2 Sat by Pulse 97 Oximetry 11/06/17 11/06/17 11/06/17 12:24 15:52 16:06 Temperature 98.2 F 98.1 F Pulse Rate 107 H 99 H 99 H Respiratory 20 22 Rate Blood Pressure 162/90 175/97 175/97 Blood Pressure [Right] O2 Sat by Pulse 96 97 Oximetry General appearance: Present: no acute distress, well-nourished - EENT Eyes: PERRL, EOM intact ENT: hearing intact, clear oral mucosa Ears: bilateral: normal - Neck Neck: supple, normal ROM - Respiratory Respiratory effort: normal Respiratory: bilateral: CTA - Breasts Breasts: normal - Cardiovascular Heart rate: 78 Rhythm: regular Heart Sounds: Present: S1 & S2. Absent: gallop, rub Extremities: no ischemia, pulses intact, No edema, normal color, Full ROM - Gastrointestinal General gastrointestinal: Present: soft, non-tender, non-distended, normal bowel sounds Localized gastrointestinal: tender: diffuse - Genitourinary Male genitourinary: normal - Integumentary Integumentary: clear, warm, dry - Musculoskeletal Musculoskeletal: 1, strength equal bilaterally - Neurologic Neurologic: moves all extremities - Psychiatric Psychiatric: memory intact, appropriate mood/affect, intact judgment & insight - Labs CBC & Chem 7: 11/06/17 05:10 11/06/17 05:10 Labs: Abnormal lab results 11/06/17 11/06/17 11/06/17 Range/Units 05:10 05:10 05:10 MCV 100 H (84-94) fl MCH 34 H (28-32) pg [place] % (Auto) 9.2 H (0.0-7.3) % [place] # 0.9 H (0.0-0.8) K/mm3 Sodium 135 L (137-145) mmol/L Potassium 3.1 L D (3.6-5.0) mmol/L Carbon Dioxide 20 L (22-30) mmol/L BUN 3 L (9-20) mg/dL Creatinine 0.4 L (0.8-1.5) mg/dL Glucose 112 H (75-100) mg/dL Calcium 8.2 L (8.4-10.2) mg/dL Albumin 3.6 L (3.9-5) g/dL Lipase 101 H (13-60) units/L
[2017-11-07] MEDS: DILAUDID IV PRN ×6 (01:29→23:29)
[2017-11-07] MEDS: APRESOLINE IV PRN ×2 (04:51→23:38)
[2017-11-07] MEDS: ATIVAN IV PRN ×2 (04:51→23:29)
[2017-11-07] MEDS: D5NS 1,000 ML IV SCH ×3 (04:52→19:06)
[2017-11-07 05:11] LABS: Basophils # (Auto) 0.1 K/mm3 (0.0-0.1); Basophils % (Auto) 0.8 % (0.0-1.8); Eosinophils # (Auto) 0.3 K/mm3 (0.0-0.4); Eosinophils % (Auto) 4.2 % (0.0-4.3); Hemoglobin 11.9 gm/dl (11.8-15.2); Lymphocytes # (Auto) 1.4 K/mm3 (1.2-5.4); Lymphocytes % (Auto) 20.4 % (13.4-35.0); Mean Corpuscular HGB Conc 34 % (32-34); Mean Corpuscular Hemoglobin 34 pg (28-32); Mean Corpuscular Volume 100 fl (84-94); Monocytes # (Auto) 0.7 K/mm3 (0.0-0.8); Monocytes % (Auto) 10.6 % (0.0-7.3); Platelet Count 216 K/mm3 (140-440); Red Blood Count 3.51 M/mm3 (3.65-5.03); Red Cell Distribution Width 15.2 % (13.2-15.2)
[2017-11-07 05:22] LABS: Alanine Aminotransferase 8 units/L (7-56); Albumin 3.3 g/dL (3.9-5); BUN/Creatinine Ratio 8; Blood Urea Nitrogen 3 mg/dL (9-20); Hemolysis Index 1
[2017-11-07] MEDS ORDERED: K-DUR PO ONE (06:59)
[2017-11-07] MEDS: K-PHOS NEUTRAL PO SCH (10:36)
[2017-11-07] MEDS: ZESTRIL PO SCH (10:36)
[2017-11-07] MEDS: PEPCID IV SCH ×2 (10:36→23:28)
[2017-11-07] MEDS: HEPARIN SUB-Q SCH ×2 (10:37→23:28)
[2017-11-07] MEDS: SODIUM CHLORIDE FLUSH SYRINGE 10 ML IV SCH ×2 (10:37→23:29)
[2017-11-07] MEDS: PERCOCET 5/325 PO PRN (14:52)
--- NOTE | 2017-11-07 17:09 | Progress Note ---
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 Plan to address problem: Chronic (3) Hypertension Current Visit: Yes Status: Chronic Qualifiers: Hypertension type: essential hypertension Qualified Code(s): I10 - Essential (primary) hypertension Plan to address problem: Catapres patch initiated No oral antihypertensives (4) EtOH dependence Current Visit: Yes Status: Chronic Qualifiers: Substance use status: uncomplicated Qualified Code(s): F10.20 - Alcohol dependence, uncomplicated Plan to address problem: CIWA protocol initiated (5) Hypokalemia Current Visit: Yes Status: Acute Plan to address problem: Supplemented K=2.7 (6) Hypomagnesemia Current Visit: Yes Status: Acute Plan to address problem: Supplemented Recheck magnesium level Still low (7) Hypophosphatemia Current Visit: Yes Status: Acute Plan to address problem: Supplemented Recheck phosphorus level Still low (8) DVT prophylaxis Current Visit: Yes Status: Acute Plan to address problem: Heparin 5000 units subcutaneous every 12 Subjective Date of service: 11/07/17 Principal diagnosis: acute pancreatitis, EtOH dependence Interval history: Patient symptomatically better Objective - Exam Narrative Exam: Lying in bed uncomfortable - Constitutional Vitals: Vital Signs - 12hr 11/07/17 11/07/17 11/07/17 07:51 10:36 15:19 Temperature 98.0 F 97.6 F Pulse Rate 115 H 115 H 87 Respiratory 16 19 Rate Blood Pressure 159/103 159/103 188/114 O2 Sat by Pulse 99 98 Oximetry General appearance: Present: no acute distress, well-nourished - EENT Eyes: PERRL, EOM intact ENT: hearing intact, clear oral mucosa Ears: bilateral: normal - Neck Neck: supple, normal ROM - Respiratory Respiratory effort: normal Respiratory: bilateral: CTA - Breasts Breasts: normal - Cardiovascular Heart rate: 78 Rhythm: regular Heart Sounds: Present: S1 & S2. Absent: gallop, rub Extremities: no ischemia, pulses intact, No edema, normal color, Full ROM - Gastrointestinal General gastrointestinal: Present: soft, non-tender, non-distended, normal bowel sounds - Genitourinary Male genitourinary: normal - Integumentary Integumentary: clear, warm, dry - Musculoskeletal Musculoskeletal: 1, strength equal bilaterally - Neurologic Neurologic: moves all extremities - Psychiatric Psychiatric: memory intact, appropriate mood/affect, intact judgment & insight - Allied health notes Allied health notes reviewed: nursing, case management - Labs CBC & Chem 7: 11/07/17 04:32 11/07/17 04:32 Labs: Abnormal lab results 11/07/17 11/07/17 11/07/17 Range/Units 04:32 04:32 04:32 RBC 3.51 L (3.65-5.03) M/mm3 Hct 35.0 L (35.5-45.6) % MCV 100 H (84-94) fl MCH 34 H (28-32) pg [place] % (Auto) 10.6 H (0.0-7.3) % Sodium 134 L (137-145) mmol/L Potassium 2.7 L* (3.6-5.0) mmol/L Carbon Dioxide 21 L (22-30) mmol/L BUN 3 L (9-20) mg/dL Creatinine 0.4 L (0.8-1.5) mg/dL Calcium 8.0 L (8.4-10.2) mg/dL Phosphorus 2.40 L (2.5-4.5) mg/dL Magnesium 1.00 L (1.7-2.3) mg/dL Total Protein 6.1 L (6.3-8.2) g/dL Albumin 3.3 L (3.9-5) g/dL Lipase 78 H (13-60) units/L
[2017-11-07] MEDS ORDERED: PERCOCET 5/325 PO PRN (17:42)
[2017-11-07] MEDS ORDERED: MAGNESIUM SULFATE 2GM/50ML 2 GM/50 ML BAG IV ONE (18:00)
[2017-11-07] MEDS ORDERED: KPHOS 40 MMOL in NACL 0.9% 500 ML 500 ML IV ONE (18:00)
[2017-11-07] MEDS: KCL 10MEQ/100ML 10 MEQ/100 ML BAG IV SCH ×3 (18:59→23:28)
[2017-11-08] MEDS: KCL 10MEQ/100ML 10 MEQ/100 ML BAG IV SCH (02:20)
[2017-11-08] MEDS: DILAUDID IV PRN ×7 (02:56→21:57)
[2017-11-08] MEDS: ATIVAN IV PRN (03:26)
[2017-11-08 06:58] LABS: Alanine Aminotransferase 7 units/L (7-56); Albumin 3.3 g/dL (3.9-5); BUN/Creatinine Ratio 6; Blood Urea Nitrogen 3 mg/dL (9-20); Calcium 8.1 mg/dL (8.4-10.2); Hemolysis Index 0
[2017-11-08] MEDS: HEPARIN SUB-Q SCH ×2 (09:20→21:57)
[2017-11-08] MEDS: K-PHOS NEUTRAL PO SCH (09:23)
[2017-11-08] MEDS: ZESTRIL PO SCH (09:23)
[2017-11-08] MEDS: PEPCID IV SCH ×2 (09:25→21:57)
[2017-11-08] MEDS: SODIUM CHLORIDE FLUSH SYRINGE 10 ML IV SCH ×2 (10:00→21:58)
[2017-11-08] MEDS ORDERED: KPHOS 45 MMOL in NACL 0.9% 500 ML 500 ML IV ONE (16:15)
--- NOTE | 2017-11-08 16:17 | Progress Note ---
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 Plan to address problem: Chronic (3) Hypertension Current Visit: Yes Status: Chronic Qualifiers: Hypertension type: essential hypertension Qualified Code(s): I10 - Essential (primary) hypertension Plan to address problem: Catapres patch initiated No oral antihypertensives (4) EtOH dependence Current Visit: Yes Status: Chronic Qualifiers: Substance use status: uncomplicated Qualified Code(s): F10.20 - Alcohol dependence, uncomplicated Plan to address problem: CIWA protocol initiated (5) Hypokalemia Current Visit: Yes Status: Acute Plan to address problem: Supplemented K=2.7 ---3.1 (6) Hypomagnesemia Current Visit: Yes Status: Acute Plan to address problem: Supplemented Recheck magnesium level Still low (7) Hypophosphatemia Current Visit: Yes Status: Acute Plan to address problem: Supplemented Recheck phosphorus level Still low (8) DVT prophylaxis Current Visit: Yes Status: Acute Plan to address problem: Heparin 5000 units subcutaneous every 12 Subjective Date of service: 11/08/17 Principal diagnosis: acute pancreatitis, EtOH dependence Interval history: Patient symptomatically better Objective - Exam Narrative Exam: Lying in bed uncomfortable - Constitutional Vitals: Vital Signs - 12hr 11/08/17 11/08/17 11/08/17 04:23 07:48 09:23 Temperature 98.2 F 97.8 F Pulse Rate 101 H 105 H 105 H Respiratory 20 20 Rate Blood Pressure 151/90 135/84 135/84 O2 Sat by Pulse 94 98 Oximetry 11/08/17 14:18 Temperature 98.0 F Pulse Rate 91 H Respiratory 20 Rate Blood Pressure 166/96 O2 Sat by Pulse 98 Oximetry General appearance: Present: no acute distress, well-nourished - EENT Eyes: PERRL, EOM intact ENT: hearing intact, clear oral mucosa Ears: bilateral: normal - Neck Neck: supple, normal ROM - Respiratory Respiratory effort: normal Respiratory: bilateral: CTA - Breasts Breasts: normal - Cardiovascular Rhythm: regular Heart Sounds: Present: S1 & S2. Absent: gallop, rub Extremities: no ischemia, pulses intact, No edema, normal color, Full ROM - Gastrointestinal General gastrointestinal: Present: soft, non-tender, non-distended, normal bowel sounds - Genitourinary Male genitourinary: deferred, normal - Integumentary Integumentary: clear, warm, dry - Musculoskeletal Musculoskeletal: 1, strength equal bilaterally - Neurologic Neurologic: CNII-XII intact, moves all extremities - Psychiatric Psychiatric: memory intact, appropriate mood/affect, intact judgment & insight - Labs CBC & Chem 7: 11/07/17 04:32 11/08/17 05:44 Labs: Abnormal lab results 11/08/17 11/08/17 Range/Units 05:44 05:44 Potassium 3.1 L (3.6-5.0) mmol/L BUN 3 L (9-20) mg/dL Creatinine 0.5 L (0.8-1.5) mg/dL Calcium 8.1 L (8.4-10.2) mg/dL Phosphorus 2.40 L (2.5-4.5) mg/dL Total Protein 5.8 L (6.3-8.2) g/dL Albumin 3.3 L (3.9-5) g/dL Lipase 61 H (13-60) units/L
[2017-11-08] MEDS: APRESOLINE IV PRN (21:57)
[2017-11-09] MEDS: DILAUDID IV PRN ×5 (01:01→13:56)
[2017-11-09] MEDS: SODIUM CHLORIDE FLUSH SYRINGE 10 ML IV PRN (01:02)
[2017-11-09] MEDS: D5NS 1,000 ML IV SCH ×3 (01:43→13:56)
[2017-11-09 06:50] LABS: Alanine Aminotransferase 7 units/L (7-56); Albumin 3.2 g/dL (3.9-5); BUN/Creatinine Ratio 4; Blood Urea Nitrogen 2 mg/dL (9-20); Calcium 7.9 mg/dL (8.4-10.2); Hemolysis Index 2
[2017-11-09] MEDS: K-PHOS NEUTRAL PO SCH (09:07)
[2017-11-09] MEDS: PEPCID IV SCH (09:07)
[2017-11-09] MEDS: ZESTRIL PO SCH (09:07)
[2017-11-09] MEDS: HEPARIN SUB-Q SCH (09:08)
[2017-11-09] MEDS: SODIUM CHLORIDE FLUSH SYRINGE 10 ML IV SCH (09:09)
[2017-11-09] MEDS: APRESOLINE IV PRN (12:58)
--- NOTE | 2017-11-09 16:00 | Discharge Summary ---
Providers - Providers Date of Admission: 11/03/17 15:42 Date of discharge: 11/09/17 Attending physician: BRYNN HA 11/04/17 18:58 Consult to Physician [CONS] Routine Comment: Consulting Provider: TYLOR ELI Physician Instructions: Reason For Exam: Acute pancreatitis Primary care physician: [employer] Hospitalization Condition: Stable Hospital course: Assessment and Plan - Patient Problems (1) Acute pancreatitis Current Visit: Yes Status: Acute Qualifiers: Pancreatitis type: unspecified pancreatitis type Acute pancreatitis complication: unspecified Qualified Code(s): K85.90 - Acute pancreatitis without necrosis or infection, unspecified Plan to address problem: Clear liquids initiated Amylase and Lipase normal Will d/c on clear liquids for 5 days and then advance as tolerated (2) Celiac artery stenosis Current Visit: Yes Status: Chronic Plan to address problem: Chronic (3) Hypertension Current Visit: Yes Status: Chronic Qualifiers: Hypertension type: essential hypertension Qualified Code(s): I10 - Essential (primary) hypertension Plan to address problem: Oral antihypertensives--Initiated (4) EtOH dependence Current Visit: Yes Status: Chronic Qualifiers: Substance use status: uncomplicated Qualified Code(s): F10.20 - Alcohol dependence, uncomplicated Plan to address problem: Discharge on Ativan (5) Hypokalemia Current Visit: Yes Status: Acute Plan to address problem: Resolved 3.7 (6) Hypomagnesemia Current Visit: Yes Status: Acute Plan to address problem: Supplemented (7) Hypophosphatemia Current Visit: Yes Status: Acute Plan to address problem: Supplemented Disposition: DC-01 TO HOME OR SELFCARE Core Measure Documentation - Palliative Care Palliative Care/ Comfort Measures: Not Applicable - Core Measures Any of the following diagnoses?: none Exam - Physical Exam Narrative exam: Lying in bed uncomfortable - Constitutional Vitals: Temp Pulse Resp BP Pulse Ox 97.9 F 104 H 20 153/92 98 11/09/17 13:31 11/09/17 13:31 11/09/17 13:31 11/09/17 13:31 11/09/17 13:31 General appearance: Present: no acute distress, well-nourished - EENT Eyes: Present: PERRL ENT: hearing intact, clear oral mucosa - Neck Neck: Present: supple, normal ROM - Respiratory Respiratory effort: normal Respiratory: bilateral: CTA - Cardiovascular Heart Sounds: Present: S1 & S2. Absent: rub, click - Extremities Extremities: pulses symmetrical, No edema Peripheral Pulses: within normal limits - Abdominal General gastrointestinal: Present: soft, non-tender, non-distended, normal bowel sounds Male genitourinary: Present: normal - Rectal Rectal Exam: deferred - Integumentary Integumentary: Present: clear, warm, dry - Musculoskeletal Musculoskeletal: gait normal, strength equal bilaterally - Psychiatric Psychiatric: appropriate mood/affect, intact judgment & insight - Neurologic Neurologic: CNII-XII intact, moves all extremities - Allied Health Allied health notes reviewed: nursing, case management Plan Diet: clear liquids Follow up with: PRIMARY CARE, [Primary Care Provider] - 3-5 Days
[2017-11-09 16:27] VITALS: BP 138/90
[2017-11-11] MEDS ORDERED: CATAPRES-TTS PATCH TD SCH (10:00)
== END 2017-11-09 17:19 | disposition home or self-care (01) | DRG 439 ==
LOC: ED 09:51 → 3A 15:42
PROVIDERS: ADMIT Internal Medicine; ATTEND Internal Medicine
DX: K85.20 Alcohol induced acute pancreatitis without necrosis or infection (principal); K50.90 Crohn's disease, unspecified, without complications; I77.4 Celiac artery compression syndrome; I10 Essential (primary) hypertension; F17.210 Nicotine dependence, cigarettes, uncomplicated; Z90.49 Acquired absence of other specified parts of digestive tract; F10.20 Alcohol dependence, uncomplicated; E87.6 Hypokalemia; E83.42 Hypomagnesemia; E83.39 Other disorders of phosphorus metabolism; Z79.899 Other long term (current) drug therapy
CPT/HCPCS: 36415; 74177; 80053; 81001; 82140; 82150; 82310; 83036; 83690; 83735; 84100; 85025; 99285; 99406; J0360; J1170; J1200; J1644; J2060; J2270; J2405; J3010; J3475; J3480; J7030; J7040; J7042; Q9967